=== PATIENT | male | born 1965 | race Caucasian/White ===

== ENCOUNTER → 2016-09-27 | Outpatient (CLI) | payer OTHER, BC ==
[~2016-09-27] MED LIST: BACLOFEN10 MG PO; BUMETANIDE0.5 MG PO; CARDIZEM CD,CA180 MG PO; CARDIZEM30 MG PO; CENTRAVITES1 EAC1 PO; COLACE100 MG PO; CYMBALTA30 MG PO; CYMBALTA60 MG PO; DIAZEPAM5 MG PO; DILTIAZEM HCL360 MG PO; FOLIC ACID1 MG PO; LYRICA200 MG PO; NIZORAL 2% CREA15 GM TP; ONDANSETRON HCL4 MG PO; OXYCODONE HCL10 MG PO; PRADAXA150 MG PO; RANITIDINE HCL150 MG PO; SPIRONOLACTONE25 MG PO; TRAMADOL HCL50 MG PO; TRAZODONE HCL50 MG PO
== END | disposition home or self-care (01) ==
LOC: MRI 13:16 → RAD 13:30
DX: M53.82 Other specified dorsopathies, cervical region (principal); M47.894 Other spondylosis, thoracic region; G81.10 Spastic hemiplegia affecting unspecified side
CPT/HCPCS: 72141; 72146

== ENCOUNTER 2016-10-08 16:35 | Emergency (ER) | payer OTHER, BC ==
[~2016-10-08] VITALS: Ht 188 cm; Wt 165.9 kg
[2016-10-08 17:32] LABS: EOSINOPHIL (%) 0.3 % (0-5); HEMATOCRIT 43.5 % (38.0-50.0); IMMATURE GRANULOCYTE (%) 0.5 % (0.0-0.7); IMMATURE GRANULOCYTE COUNT 0.1 K/uL; INSTRUMENT ABS NEUTROPHIL CT 7.2 K/uL; LYMPHOCYTE COUNT 1.1 K/uL (1.0-2.8); MCH 29.9 PG (29.0-34.0); MCHC 32.4 G/DL (30.0-36.0); MCV 92.2 FL (86-99); MEAN PLAT.VOLUME 8.8 uM^3 (9.0-12.4); MONOCYTE (%) 12.4 % (3-12); MONOCYTE COUNT 1.2 K/uL (0-0.8); NEUTROPHIL (%) 75.2 % (45-76); NEUTROPHIL COUNT 7.2 K/uL (1.8-6.4); PLATELET COUNT 162 K/uL (156-360); RBC DIS.WIDTH-CV 15.4 % (11.8-14.6); RBC DIS.WIDTH-SD 52.1 % (39-53); RED BLOOD COUNT 4.72 M/uL (4.00-5.50); WHITE BLOOD COUNT 9.5 K/uL (4.1-10.2)
[2016-10-08 17:52] LABS: CHLORIDE 98 mEq/L (99-109); POTASSIUM 3.9 mEq/L (3.7-5.4); SODIUM 134 mEq/L (136-147)
[2016-10-08 17:53] LABS: GLUCOSE 124 mg/dL (70-99)
[2016-10-08 17:55] LABS: ANION GAP 6 MEQ/L (2-14)
[2016-10-08 17:57] LABS: GFR ESTIMATE (CALCULATED) > 59 mL/min/
[2016-10-08 17:58] LABS: UREA NITROGEN (BUN) 17 mg/dL (9-23)
[2016-10-08] MEDS ORDERED: CLEOCIN300 MG PO (20:15)
[2016-10-08 20:43] VITALS: BP 105/61
== END 2016-10-08 20:44 | disposition home or self-care (01) ==
LOC: EME 16:35
DX: L03.115 Cellulitis of right lower limb (principal); L03.116 Cellulitis of left lower limb; I50.9 Heart failure, unspecified; Z87.442 Personal history of urinary calculi; Z91.040 Latex allergy status
CPT/HCPCS: 80048; 81003; 83605; 85025; 99281; 99284

== ENCOUNTER 2016-11-06 10:05 | Inpatient (IN) | payer OTHER, BC ==
[~2016-11-06] VITALS: Ht 188 cm; Wt 171.0 kg
[~2016-11-06 10:05] MED LIST changes: +CLEOCIN300 MG PO
[2016-11-06 10:48] LABS: EOSINOPHIL COUNT 0.1 K/uL (0-0.3); HEMATOCRIT 48.2 % (38.0-50.0); IMMATURE GRANULOCYTE (%) 0.3 % (0.0-0.7); LYMPHOCYTE COUNT 0.9 K/uL (1.0-2.8); MCH 29.9 PG (29.0-34.0); MCHC 32.4 G/DL (30.0-36.0); MCV 92.3 FL (86-99); MEAN PLAT.VOLUME 8.6 uM^3 (9.0-12.4); MONOCYTE (%) 9.6 % (3-12); MONOCYTE COUNT 0.6 K/uL (0-0.8); PLATELET COUNT 182 K/uL (156-360); RBC DIS.WIDTH-CV 14.3 % (11.8-14.6); RBC DIS.WIDTH-SD 48.7 % (39-53); RED BLOOD COUNT 5.22 M/uL (4.00-5.50); WHITE BLOOD COUNT 6.7 K/uL (4.1-10.2)
[2016-11-06 11:09] LABS: INTER. NORMALIZED RATIO 1.3; PROTHROMBIN TIME 14.3 SEC (10.2-12.9)
[2016-11-06 11:11] LABS: TROP-I INTERPRETATION NEGATIVE; TROPONIN-I < 0.01 ng/mL (0.0-0.30)
[2016-11-06 11:15] LABS: CHLORIDE 98 mEq/L (99-109); POTASSIUM 4.6 mEq/L (3.7-5.4); SODIUM 135 mEq/L (136-147)
[2016-11-06 11:18] LABS: GLUCOSE 105 mg/dL (70-99)
[2016-11-06 11:19] LABS: ANION GAP 8 MEQ/L (2-14); TOTAL BILIRUBIN 0.8 mg/dL (0.0-1.0)
[2016-11-06 11:21] LABS: ALKALINE PHOSPHATASE 92 IU/L (3-129); GFR ESTIMATE (CALCULATED) > 59 mL/min/
[2016-11-06 11:22] LABS: UREA NITROGEN (BUN) 12 mg/dL (9-23)
[2016-11-06 11:23] LABS: DIRECT BILIRUBIN 0.3 mg/dL (0.0-0.3)
[2016-11-06 11:44] LABS: ADD MIUA? YES; BILIRUBIN NEGATIVE; BLOOD MODERATE; COLOR YELLOW ((YELLOW)); GLUCOSE (STRIP) NEGATIVE; KETONES NEGATIVE; LEUKOCYTES MODERATE; NITRITE POSITIVE; PROTEIN (STRIP) NEGATIVE; SPECIFIC GRAVITY 1.006 (1.000-1.030); UROBILINOGEN 0.2 MG/DL (0.2-1.0)
[2016-11-06 11:48] LABS: BACTERIA RARE /HPF; EPITHELIAL CELLS RARE /HPF; MUCUS TRACE /LPF; RED BLOOD CELLS 0-5 /HPF (0-5); UCUL ADDED? NO
[2016-11-06] MEDS ORDERED: BACLOFEN20 MG PO (12:15)
[2016-11-06] MEDS ORDERED: FIBER TABS625 MG PO (13:01)
[2016-11-06] MEDS ORDERED: FISH OIL 1,0001 EAC7 PO (13:01)
[2016-11-06] MEDS ORDERED: CENTRUM SILVER1 EAC3 PO (13:02)
[2016-11-06] MEDS ORDERED: VITAMIN D2000 UNI1 PO (13:02)
[2016-11-06] MEDS ORDERED: NEURONTIN100 MG PO (13:03)
[2016-11-06] MEDS ORDERED: PROBIOTIC1 EAC1 PO (13:03)
[2016-11-06] MEDS ORDERED: DEPO-TESTOS200 MG/ML IM (13:05)
[2016-11-06] MEDS ORDERED: LAMICTAL ODT25 MG PO (13:06)
[2016-11-06] MEDS ORDERED: AMBIEN10 MG PO (13:06)
[2016-11-06] MEDS ORDERED: OXYCONTIN10 MG PO (13:06)
[2016-11-06] MEDS ORDERED: LIORESAL10 MG PO (13:07)
[2016-11-06 14:40] VITALS: BP 102/58
[2016-11-06 15:57] VITALS: BP 102/58
[2016-11-06 20:00] VITALS: BP 131/71
[2016-11-06 23:16] VITALS: BP 108/70
[2016-11-07 00:18] VITALS: BP 108/56
[2016-11-07 06:33] LABS: HEMATOCRIT 43.9 % (38.0-50.0); MCHC 32.1 G/DL (30.0-36.0); MCV 93.4 FL (86-99); MEAN PLAT.VOLUME 8.4 uM^3 (9.0-12.4); PLATELET COUNT 171 K/uL (156-360); RBC DIS.WIDTH-CV 14.3 % (11.8-14.6); RBC DIS.WIDTH-SD 49.8 % (39-53)
[2016-11-07 06:59] LABS: ANION GAP 5 MEQ/L (2-14); CHLORIDE 94 MEQ/L (99-109); GFR ESTIMATE (CALCULATED) > 59 mL/min/; GLUCOSE 97 mg/dL (70-99); POTASSIUM 4.3 MEQ/L (3.7-5.4); SAMPLE HEMOLYSIS CHECK 0; SAMPLE ICTERIC CHECK 0; SAMPLE LIPEMIA CHECK 0; SODIUM 131 MEQ/L (136-147); UREA NITROGEN (BUN) 11 mg/dL (9-23)
[2016-11-07 07:45] VITALS: BP 119/81
[2016-11-07 16:06] VITALS: BP 135/78
[2016-11-07 18:42] LABS: ANION GAP 5 MEQ/L (2-14); CHLORIDE 97 MEQ/L (99-109); GFR ESTIMATE (CALCULATED) > 59 mL/min/; GLUCOSE 121 mg/dL (70-99); POTASSIUM 4.6 MEQ/L (3.7-5.4); SAMPLE HEMOLYSIS CHECK 0; SAMPLE ICTERIC CHECK 0; SAMPLE LIPEMIA CHECK 0; SODIUM 134 MEQ/L (136-147); UREA NITROGEN (BUN) 11 mg/dL (9-23)
[2016-11-07 23:53] VITALS: BP 132/78
[2016-11-08 07:00] LABS: ANION GAP 6 MEQ/L (2-14); CHLORIDE 95 MEQ/L (99-109); GFR ESTIMATE (CALCULATED) > 59 mL/min/; POTASSIUM 4.6 MEQ/L (3.7-5.4); SAMPLE HEMOLYSIS CHECK 0; SAMPLE ICTERIC CHECK 0; SAMPLE LIPEMIA CHECK 0; SODIUM 133 MEQ/L (136-147); UREA NITROGEN (BUN) 10 mg/dL (9-23)
[2016-11-08 07:01] LABS: GLUCOSE 90 mg/dL (70-99)
[2016-11-08 08:20] VITALS: BP 115/80
[2016-11-08] MEDS ORDERED: OXYCODONE HCL5 MG PO (09:46)
== END 2016-11-08 14:30 | disposition home or self-care (01) | DRG 73 ==
LOC: EME 10:05 → 3EAST 13:38 → EDOF 13:38 → ENRESERV 13:39 → EDOF 13:47 → ENRESERV 14:10 → 3EAST 15:05
PROVIDERS: Emergency Medicine; Hospitalist
DX: M79.2 Neuralgia and neuritis, unspecified (principal); G82.50 Quadriplegia, unspecified; E87.1 Hypo-osmolality and hyponatremia; Z68.42 Body mass index [BMI] 45.0-49.9, adult; T83.090A Other mechanical complication of cystostomy catheter, initial encounter; I50.9 Heart failure, unspecified; N31.9 Neuromuscular dysfunction of bladder, unspecified; I11.0 Hypertensive heart disease with heart failure; I48.91 Unspecified atrial fibrillation; G89.29 Other chronic pain; E66.01 Morbid (severe) obesity due to excess calories; R11.2 Nausea with vomiting, unspecified; R06.02 Shortness of breath; F45.8 Other somatoform disorders; M79.606 Pain in leg, unspecified; Z96.0 Presence of urogenital implants; Y73.8 Miscellaneous gastroenterology and urology devices associated with adverse incidents, not elsewhere classified; Z90.49 Acquired absence of other specified parts of digestive tract; Z82.49 Family history of ischemic heart disease and other diseases of the circulatory system; Z87.828 Personal history of other (healed) physical injury and trauma; Z79.01 Long term (current) use of anticoagulants; Z87.442 Personal history of urinary calculi; Z86.718 Personal history of other venous thrombosis and embolism
CPT/HCPCS: 80048; 80048 91; 80076; 81003; 83605; 83880; 84484; 85025; 85027; 85610; 85730; 94799; 99281; 99285; G0378; J2270; J7050

== ENCOUNTER → 2017-04-28 | Outpatient (CLI) | payer OTHER ==
[~2017-04-28] MED LIST changes: +AMBIEN10 MG PO; +BACLOFEN20 MG PO; +CENTRUM SILVER1 EAC3 PO; +DEPO-TESTOS200 MG/ML IM; +FIBER TABS625 MG PO; +FISH OIL 1,0001 EAC7 PO; +LAMICTAL ODT25 MG PO; +LIORESAL10 MG PO; +NEURONTIN100 MG PO; +OXYCODONE HCL5 MG PO; +OXYCONTIN10 MG PO; +PROBIOTIC1 EAC1 PO; +VITAMIN D2000 UNI1 PO
== END | disposition home or self-care (01) ==
LOC: RAD 11:00
DX: R14.0 Abdominal distension (gaseous) (principal); R10.9 Unspecified abdominal pain; K59.09 Other constipation
CPT/HCPCS: 74176

== ENCOUNTER 2017-05-16 15:56 | Emergency (ER) | payer OTHER ==
[~2017-05-16] VITALS: Ht 188 cm; Wt 117.0 kg
[2017-05-16 17:09] LABS: HEMATOCRIT 44.7 % (38.0-50.0); HEMOGLOBIN 15.5 G/DL (12.5-16.6); MCH 31.6 PG (29.0-34.0); MCHC 34.7 G/DL (30.0-36.0); PLATELET COUNT 196 K/uL (156-360); RBC DIS.WIDTH-CV 12.6 % (11.8-14.6); RBC DIS.WIDTH-SD 41.6 % (39-53); RED BLOOD COUNT 4.91 M/uL (4.00-5.50); WHITE BLOOD COUNT 8.1 K/uL (4.1-10.2)
[2017-05-16 17:15] LABS: INTER. NORMALIZED RATIO 1.3
[2017-05-16 17:20] LABS: ALBUMIN 4.1 g/dL (3.2-4.8); CHLORIDE 97 mEq/L (99-109); POTASSIUM 4.6 mEq/L (3.7-5.4); SODIUM 135 mEq/L (136-147)
[2017-05-16 17:22] LABS: GLUCOSE 93 mg/dL (70-99); TOTAL PROTEIN 8.4 g/dL (6.4-8.3)
[2017-05-16 17:24] LABS: TOTAL BILIRUBIN 1.1 mg/dL (0.0-1.0)
[2017-05-16 17:26] LABS: ALKALINE PHOSPHATASE 131 IU/L (3-129); GFR ESTIMATE (CALCULATED) > 59 mL/min/ (58.99-99999)
[2017-05-16 17:27] LABS: UREA NITROGEN (BUN) 15 mg/dL (9-23)
[2017-05-16 17:28] LABS: AST (GOT) 28 IU/L (2-34)
[2017-05-16 17:29] LABS: ALT (GPT) 35 IU/L (3-49)
[2017-05-16] MEDS ORDERED: ULTRAM50 MG PO (20:01)
[2017-05-16 20:23] LABS: APPEARANCE CLOUDY ((CLEAR)); BILIRUBIN NEGATIVE; BLOOD NEGATIVE; COLOR YELLOW ((YELLOW)); GLUCOSE (STRIP) NEGATIVE; KETONES NEGATIVE; LEUKOCYTES LARGE; NITRITE POSITIVE; PROTEIN (STRIP) 100; SPECIFIC GRAVITY 1.012 (1.000-1.030); UROBILINOGEN 0.2 MG/DL (0.2-1.0)
[2017-05-16 20:32] LABS: BACTERIA RARE /HPF; CALCIUM OXALATE CRYSTALS 3+ /HPF; EPITHELIAL CELLS RARE /HPF; MUCUS TRACE /LPF; RED BLOOD CELLS 0-5 /HPF (0-5); TRIPLE PHOSPHATE CRYSTALS 2+ /HPF; UCUL ADDED? YES
[2017-05-16 21:26] VITALS: BP 100/67
== END 2017-05-16 21:33 | disposition home or self-care (01) ==
LOC: EME 15:56
PROVIDERS: Emergency Medicine
DX: F11.23 Opioid dependence with withdrawal (principal); R10.9 Unspecified abdominal pain; G82.50 Quadriplegia, unspecified; Z79.01 Long term (current) use of anticoagulants; Z87.442 Personal history of urinary calculi; Z90.49 Acquired absence of other specified parts of digestive tract; Z93.50 Unspecified cystostomy status; Z85.9 Personal history of malignant neoplasm, unspecified; Z96.89 Presence of other specified functional implants
CPT/HCPCS: 74177; 80053; 81003; 85027; 85610; 87086; 99281; 99285; J2270; J7040